=== PATIENT | male | born 1995 | race Two or more races ===

== ENCOUNTER 2019-02-03 08:49 | Emergency (ER) | payer BC ==
--- NOTE | 2019-02-03 08:52 | EDM.PDOC ---
ED HPI GENERAL MEDICAL PROBLEM - General Stated Complaint: CHEST PAIN Time Seen by Provider: 02/03/19 09:05 - History of Present Illness INITIAL COMMENTS - FREE TEXT/NARRATIVE: HISTORY AND PHYSICAL: History of present illness: The patient is a 23-year-old male who presents with complaints of left upper chest wall pain that started 5-1/2 days ago and has been constant but waxing and waning in intensity. There is no radiation associated shortness of breath nausea or abdominal pain jaw pain or arm pain. The patient has no upper respiratory symptoms such as cough fever chills or shortness of breath and,. He has been eating and drinking normally and only using Tylenol for the pain. The patient has no significant social history or past medical history and takes no prescription medications. The patient was seen yesterday at [facility] and had a workup including blood work, CBC CMP d-dimer troponin BNP CRP, all of which I reviewed as it was done here at our hospital and were negative. He also had an EKG and a chest x- ray at [facility] which he was told was negative. He was advised that as all the tests are negative that this is likely chest wall pain and that he should use Tylenol or ibuprofen but he was also told at the clinic that the pain did not improve he should come to the ED. He says that the pain worsens when he moves his arm certain ways when he bends over and when he takes a big deep breath. He says that because the pain persisted he thought he should come here for reevaluation. Review of systems: As per history of present illness and below otherwise all systems reviewed and negative. Past medical history: As per history of present illness and as reviewed below otherwise noncontributory. Surgical history: As per history of present illness and as reviewed below otherwise noncontributory. Social history: No reported history of drug or alcohol abuse. Family history: As per history of present illness and as reviewed below otherwise noncontributory. Physical exam: General: Well-developed well-nourished man who is nontoxic and moves easily in the ED without distress. Vital signs are noted by me HEENT: Atraumatic, normocephalic, negative for conjunctival pallor or scleral icterus, mucous membranes moist, throat clear, neck supple, nontender, trachea midline. Lungs: Clear to auscultation, breath sounds equal bilaterally, chest wall in the left upper area has some minimal discomfort with palpation but no defects deformities or soft tissue swelling Heart: S1S2, regular rate and rhythm no overt murmurs Abdomen: Soft, nondistended, nontender. NABS Pelvis: Deferred Genitourinary: Deferred. Rectal: Deferred. Extremities: Atraumatic, negative for cords or calf pain. Neurovascular unremarkable. No pedal edema Neuro: Awake, alert, oriented. Cranial nerves II through XII unremarkable. Cerebellum unremarkable. Motor and sensory unremarkable throughout. Exam nonfocal. Diagnostics: EKG troponin Therapeutics: Toradol Impression: Left chest wall pain, subacute Definitive disposition and diagnosis as appropriate pending reevaluation and review of above. Chest Pain Score (Numeric/FACES): 4 - Related Data Allergies Allergy/AdvReac Type Severity Reaction Status Date / Time Penicillins Allergy Rash Verified 02/03/19 09:01 Home Meds: Home Meds . [No Known Home Meds] 02/03/19 [History] ED ROS GENERAL - Review of Systems Review Of Systems: ROS reveals no pertinent complaints other than HPI. ED EXAM, GENERAL - Physical Exam Exam: See Below (See dictation) Course - Vital Signs Last Recorded V/S: Last Vital Signs Temp 36.3 C 02/03/19 09:02 Pulse 78 02/03/19 09:02 Resp 13 02/03/19 09:02 BP 141/71 H 02/03/19 09:02 Pulse Ox 100 02/03/19 09:02 - Orders/Labs/Meds Orders: Active Orders 24 hr Category Date Time Status EKG Documentation Completion [RC] STAT Care 02/03/19 09:01 Active Labs: Laboratory Tests 02/03/19 Range/Units 09:17 Troponin I < 0.050 (0.000-0.056) ng/mL Meds: Medications Discontinued Medications Generic Name Dose Route Start Last Admin Trade Name Freq PRN Reason Stop Dose Admin Ketorolac Tromethamine 60 mg 02/03/19 09:01 02/03/19 09:12 Toradol IM 02/03/19 09:02 60 mg ONETIME ONE Administration Departure - Departure Time of Disposition: 09:58 Disposition: Home, Self-Care 01 Condition: Good Clinical Impression: Chest wall pain - Discharge Information Referrals: PCP,Unknown [Primary Care Provider] - Additional Instructions: The following information is given to patients seen in the emergency department who are being discharged to home. This information is to outline your options for follow-up care. We provide all patients seen in our emergency department with a follow-up referral. The need for follow-up, as well as the timing and circumstances, are variable depending upon the specifics of your emergency department visit. If you don't have a primary care physician on staff, we will provide you with a referral. We always advise you to contact your personal physician following an emergency department visit to inform them of the circumstance of the visit and for follow-up with them and/or the need for any referrals to a consulting specialist. The emergency department will also refer you to a specialist when appropriate. This referral assures that you have the opportunity for followup care with a specialist. All of these measure are taken in an effort to provide you with optimal care, which includes your followup. Under all circumstances we always encourage you to contact your private physician who remains a resource for coordinating your care. When calling for followup care, please make the office aware that this follow-up is from your recent emergency room visit. If for any reason you are refused follow-up, please contact the [facility] emergency department at and ask to speak to the emergency department charge nurse. [address] [place] [address] Use [id number] ibuprofen/Motrin or Aleve for discomfort as we talked about and you can add Tylenol as well. Ice or heat to area as you choose for symptomatic care and call and schedule a follow-up appointment at [facility] with a provider who saw you yesterday as needed next week. Return to ER as needed and as discussed - My Orders Last 24 Hours: My Active Orders 02/03/19 09:01 EKG Documentation Completion [RC] STAT - Assessment/Plan Last 24 Hours: My Active Orders 02/03/19 09:01 EKG Documentation Completion [RC] STAT
[2019-02-03] MEDS ORDERED: Ketorolac 60 MG/2 ML SDV IM ONE (09:01)
== END 2019-02-03 10:11 | disposition home or self-care (01) ==
LOC: MW.ED 08:49
DX: R07.89 Other chest pain (principal); Z88.0 Allergy status to penicillin
CPT/HCPCS: 36415; 84484; 93005; 96372; 99283; J1885